=== PATIENT | male | born 1965 | race Caucasian/White ===

== ENCOUNTER 2020-01-30 21:57 | Emergency (ER) | payer BC ==
[~2020-01-30] VITALS: Ht 195.6 cm; Wt 84.1 kg
[2020-01-30 23:22] VITALS: BP 163/102
--- NOTE | 2020-01-31 08:06 | REP ---
Clinical: Trauma. Technique: AP, lateral, bilateral oblique views of the left ankle. Comparison: None. Findings: Significant lateral swelling consist with inversion injury. A small corticated bony density is identified along the medial malleolus likely representing old injury and less likely acute avulsion fracture. Ankle mortise is intact. Impression: swelling consist with inversion injury. Presumed old small avulsion fracture of the medial malleolus (less likely acute injury). Electronically Signed by Wilfrid Newberry MD 01/31/2020 07:58 A
== END 2020-01-30 23:23 | disposition home or self-care (01) ==
LOC: M ED 21:57
DX: S93.402A Sprain of unspecified ligament of left ankle, initial encounter (principal); X50.1XXA Overexertion from prolonged static or awkward postures, initial encounter; Y92.098 Other place in other non-institutional residence as the place of occurrence of the external cause; Y93.01 Activity, walking, marching and hiking; Y99.8 Other external cause status